=== PATIENT | female | born 1985 | race Caucasian/White ===

== ENCOUNTER 2017-08-02 18:00 | Emergency (ER) | payer OTHER ==
[~2017-08-02] VITALS: Ht 167.6 cm; Wt 102.0 kg
[~2017-08-02 18:00] MED LIST: 5-HY1CAP3 PO; CTP/1 PO; NRN600 PO
[2017-08-02 18:06] VITALS: Ht 167.6 cm; Wt 102.0 kg
[2017-08-02] MEDS ORDERED: CEPH500C PO (18:19)
[2017-08-02] MEDS ORDERED: CEPHALEXIN MONOHYDRATE 250 MG CAP PO ONE (18:30)
[2017-08-02] MEDS ORDERED: CLIN300C2 PO (18:49)
[2017-08-02 18:55] VITALS: BP 150/97; PULSE 74; TEMP 36.8; O2SAT 100
[2017-08-02] MEDS ORDERED: CLINDAMYCIN HCL 150 MG CAP PO ONE (19:00)
[2017-08-02] MEDS ORDERED: IBUP-103 PO (21:05)
--- NOTE | 2017-08-02 23:49 | EMERGENCY ROOM VISIT NOTE ---
History First contact with patient: 18:08 Chief Complaint: LACERATION/CUT (SUT/DERMABOND) Stated Complaint: CUT ON L FOREARM Nursing Triage Summary: lac to left FA that happned last night History of Present Illness The patient is a 32 year old female who presents to the Emergency Room with complaints of laceration to her left forearm that occurred last night. The patient states that she was walking down stairs to walk her dog, when the animal began to run. The patient states that she was having onto the leash, but was pulled forward, lost her balance, and fell down the stairs. She essentially struck into a piece of glass suffering laceration to her left forearm. The patient cleansed the wound with peroxide and Steri-Stripped the laceration at home. The patient believes she is up-to-date on her tetanus. She has full sensation of her hand and does not have other injuries. She rates her discomfort a 1/10. Review of Systems More than 10 systems were reviewed and otherwise negative with the exception of history of present illness. Past Medical/Surgical History Medical Problems: (1) Hepatitis C Family History Blood clots Social History Smoking Status: Current Every Day Smoker Drug Use: heroin, marijuana, other Marital Status: single Housing Status: lives alone, other Occupation Status: unemployed Current/Historical Medications Scheduled Clindamycin Hcl (Cleocin), 300 MG PO QID Scheduled PRN Ibuprofen Tab (Advil), 400-600 MG PO Q6H PRN for Pain or Fever Physical Exam Vital Signs Date Time Temp Pulse Resp B/P (MAP) Pulse Ox O2 Delivery O2 Flow Rate FiO2 08/02/17 18:55 36.8 74 16 150/97 100 08/02/17 18:06 36.8 74 16 150/97 100 Room Air Physical Exam VITALS: Vitals are noted on the nurse's note and reviewed by myself. Vital signs stable. GENERAL: Well-developed, well-nourished, white female, who is in no acute distress and resting comfortably. Patient is cooperative with the examination. HEART: Regular rate and rhythm without murmurs gallops or rubs. LUNGS: Clear to auscultation bilaterally without wheezes, rales or rhonchi. No retractions or accessory muscle use. MUSCULOSKELETAL: There appears to be several lacerations over the left anterior forearm. Most of these are superficial, however the largest is roughly 10 cm in length. There is no erythema around the wounds. The patient is able to flex and extend at the elbow and wrist. 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 Neurovascular status is intact distally. NEURO: Patient was alert and oriented to person place and time. CN II through XII grossly intact. Medical Decision & Procedures Medications Administered Medications (Trade) Dose Ordered Sig/Nat Route Start Time Stop Time Status Last Admin Dose Admin Clindamycin HCl (Cleocin Cap) 300 mg NOW ONCE PO 08/02/17 19:00 08/02/17 19:01 DC 08/02/17 18:55 300 MG ED Course Physical exam and history were performed. Nursing notes, EMR, and Medication List were personally reviewed. Patient appears to have a left forearm laceration that occurred roughly 24 hours ago. The patient does not appear to have injured tendon or muscle based on examination. She does not appear to be infected at this time. My concern is for the delayed presentation. The patient has already cleansed the wound herself and Steri-Strip this at home. The wound is fairly well approximated, but several of the Steri-Strips were replaced here in the department without difficulty. Formal closure with sutures is felt to be contraindicated. The patient will need to be started on antibiotics because of the laceration. She' ll be started on clindamycin, with her first dose being provided here. The patient will need to follow with her primary care physician for further care and management. She may also need to follow with orthopedics if she develops any worsening symptoms. I did have a lengthy discussion with patient regarding this and she voiced understanding. She rated her discomfort a 1/10 at time of departure. The chart was completed utilizing [employer] Voice Recognition Software. Grammatical errors, random word insertions, pronoun errors, and incomplete sentences are an occasional consequence of this system due to software limitations, ambient noise, and hardware issues. Any formal questions or concerns about the content, text, or information contained within the body of this dictation should be directly addressed to the provider for clarification. . Medical Decision Differential diagnosis: Etiologies such as laceration, abrasion, foreign body, cellulitis, abscess, MRSA infection, DVT, necrotizing fasciitis, dermatitis, drug eruption, as well as others were entertained.. Impression Primary Impression: Laceration of left forearm Departure Information Dispostion Home / Self-Care Condition GOOD Prescriptions Clindamycin Hcl (CLEOCIN) 300 Mg Cap 300 MG PO QID for 7 Days, #28 CAP Prov: Mono Vaughn PA-C 08/02/17 Forms HOME CARE DOCUMENTATION FORM, IMPORTANT VISIT INFORMATION Patient Instructions My [facility] Additional Instructions You were seen and evaluated today on an emergency basis only. This is not a substitute for, or an effort to provide, complete comprehensive medical care. It is not possible to recognize and treat all injuries or illnesses in a single emergency department visit. For this reason it is recommended that you followup with your primary care physician next week for recheck of her wound. Leave the Steri-Strips in place until they fall off. Clindamycin 300 mg: Take one pill 4 times daily for 7 days to prevent skin infection. All antibiotics can cause diarrhea. If this occurs and you feel worse or it does not resolve in 1-2 days follow up with your doctor or return to the Emergency Department as this could be signs of serious underlying problems. Any medication can cause an allergic reaction, stop the pills immediately and return to the ER for rash, hives, breathing difficulties, or swelling. You are welcome to return to the emergency department anytime with new, worsening, or concerning symptoms.
== END 2017-08-02 18:56 | disposition home or self-care (01) ==
LOC: C.EDB 18:01 → C.EDD 18:56
DX: S51.812A Laceration without foreign body of left forearm, initial encounter (principal); W10.9XXA Fall (on) (from) unspecified stairs and steps, initial encounter; Y93.K1 Activity, walking an animal; F17.200 Nicotine dependence, unspecified, uncomplicated; F11.90 Opioid use, unspecified, uncomplicated; F12.90 Cannabis use, unspecified, uncomplicated